=== PATIENT | male | born 1960 | race Caucasian/White ===

== ENCOUNTER 2022-07-23 13:57 | Inpatient (IN) | payer OTHER ==
[2022-07-23 14:37] VITALS: BMI 22.4
[2022-07-23] MEDS ORDERED: MAG HYDROX/AL HYDROX/SIMETH 30 ML UNIT-DOSE CUP PO PRN (15:48)
[2022-07-23] MEDS ORDERED: hydrOXYzine PAMOATE 25 MG CAPSULE (FP) PO PRN (15:48)
[2022-07-23] MEDS ORDERED: BISMUTH SUBSALICYLATE 524 MG/30 ML PO PRN (15:48)
[2022-07-23] MEDS ORDERED: IBUPROFEN 600 MG TABLET (FP) PO PRN (15:48)
[2022-07-23] MEDS ORDERED: IBUPROFEN 400 MG TABLET (FP) PO PRN (15:48)
[2022-07-23] MEDS ORDERED: DICYCLOMINE HCL 10 MG CAPSULE PO PRN (15:48)
[2022-07-23] MEDS ORDERED: P-EPHED 60MG/TRIPROLIDI 2.5MG TABLET PO PRN (15:48)
[2022-07-23] MEDS ORDERED: LOPERAMIDE HCL 2 MG CAPSULE PO PRN (15:48)
[2022-07-23] MEDS ORDERED: guaiFENesin 200 MG/10 ML 10 ML UNIT-DOSE CUPS PO PRN (15:48)
[2022-07-23] MEDS ORDERED: NALOXONE HCL (KLOXXADO) 8 MG SPRAY NS PRN (15:48)
[2022-07-23] MEDS ORDERED: NALOXONE HCL 0.4 MG/ML VIAL IM PRN (15:48)
[2022-07-23] MEDS ORDERED: ACETAMINOPHEN 325 MG TABLET (FP) PO PRN (15:48)
[2022-07-23] MEDS ORDERED: BENZOCAINE/MENTHOL (CHLORASEPTIC ) LOZENGE MM PRN (15:48)
[2022-07-23] MEDS ORDERED: POLYETHYLENE GLYCOL (HEALTHYLAX) 3350 17 GM PACKET PO PRN (15:48)
[2022-07-23] MEDS ORDERED: MAGNESIUM HYDROX 2400MG/30ML ORAL SUSPENSION 30 ML CUP PO PRN (15:48)
[2022-07-23] MEDS: MELATONIN 5 MG TABLETS PO PRN (22:25)
[2022-07-23] MEDS: THIAMINE HCL 100 MG TABLET (FP) PO SCH (22:25)
[2022-07-23] MEDS: METHOCARBAMOL 500 MG TABLET PO PRN (22:26)
[2022-07-24] MEDS: PRENATAL VITAMINS W/ FOLIC ACID TABLET (FP) PO SCH (10:12)
[2022-07-24] MEDS ORDERED: methaDONE HCL 10 MG TABLET (FOR DETOX USE ONLY) PO ONE (10:30)
[2022-07-24 11:07] LABS: HEMATOCRIT 36.8 % (35.4-49); HEMOGLOBIN 12.1 GM/dL (11.7-16.9); MCH 28.8 pg (25.7-33.7); MCHC 32.9 g/dl (32.0-35.9); MEAN CELL VOLUME 87.6 fl (80-96); MEAN PLT VOLUME 8.7 fl (7.5-11.1); PLATELET COUNT 180 10^3/uL (134-434); RBC 4.21 M/mm3 (4.00-5.60); RDW 15.2 % (11.9-15.9); WHITE BLOOD COUNT 7.2 K/mm3 (4.0-10.0)
[2022-07-24 11:57] LABS: CALCIUM 8.9 mg/dL (8.5-10.1)
[2022-07-24 11:58] LABS: ALBUMIN 3.2 g/dl (3.4-5.0)
[2022-07-24 12:01] LABS: BILIRUBIN,TOTAL 0.5 mg/dL (0.2-1); CREATININE 0.8 mg/dL (0.55-1.3)
[2022-07-24 12:02] LABS: TOT PROT 7.2 g/dl (6.4-8.2)
[2022-07-24] MEDS: ONDANSETRON *ODT* 4 MG TABLET SL PRN (18:21)
[2022-07-24] MEDS: diazePAM 5 MG TABLET PO PRN (22:24)
[2022-07-24] MEDS: MELATONIN 5 MG TABLETS PO PRN (22:25)
[2022-07-24] MEDS: THIAMINE HCL 100 MG TABLET (FP) PO SCH (22:25)
[2022-07-24] MEDS: METHOCARBAMOL 500 MG TABLET PO PRN (22:27)
[2022-07-25] MEDS: ONDANSETRON *ODT* 4 MG TABLET SL PRN (07:09)
[2022-07-25] MEDS: ACETAMINOPHEN 325 MG TABLET (FP) PO PRN ×2 (07:10→22:14)
[2022-07-25] MEDS: PRENATAL VITAMINS W/ FOLIC ACID TABLET (FP) PO SCH (10:38)
[2022-07-25] MEDS: diazePAM 5 MG TABLET PO PRN ×2 (14:34→22:13)
[2022-07-25] MEDS: cloNIDine HCL 0.1 MG TABLET PO PRN (22:12)
[2022-07-25] MEDS: MELATONIN 5 MG TABLETS PO PRN (22:12)
[2022-07-25] MEDS: THIAMINE HCL 100 MG TABLET (FP) PO SCH (22:12)
[2022-07-25] MEDS: METHOCARBAMOL 500 MG TABLET PO PRN (22:12)
[2022-07-26] MEDS ORDERED: methaDONE HCL 10 MG TABLET (FOR DETOX USE ONLY) PO ONE (10:00)
[2022-07-26] MEDS: PRENATAL VITAMINS W/ FOLIC ACID TABLET (FP) PO SCH (10:42)
[2022-07-26] MEDS: diazePAM 5 MG TABLET PO PRN (10:42)
[2022-07-26] MEDS: cloNIDine HCL 0.1 MG TABLET PO PRN (13:52)
[2022-07-26] MEDS: THIAMINE HCL 100 MG TABLET (FP) PO SCH (22:24)
[2022-07-27] MEDS: PRENATAL VITAMINS W/ FOLIC ACID TABLET (FP) PO SCH ×2 (10:25→11:05)
[2022-07-27] MEDS: THIAMINE HCL 100 MG TABLET (FP) PO SCH (21:04)
[2022-07-27] MEDS: ACETAMINOPHEN 325 MG TABLET (FP) PO PRN (21:04)
[2022-07-28 09:33] VITALS: BP 131/66; PULSE 74; RESP 18; TEMP 97.7
[2022-07-28] MEDS: PRENATAL VITAMINS W/ FOLIC ACID TABLET (FP) PO SCH (09:46)
[2022-07-28] MEDS ORDERED: methaDONE HCL 10 MG TABLET (FOR DETOX USE ONLY) PO ONE (10:00)
== END 2022-07-28 10:30 | disposition home or self-care (01) | DRG 773 ==
LOC: YASAS 13:57 → Y3N 15:49
PROVIDERS: ADMIT Allergy & Immunology; ATTEND Surgery
PROC: HZ2ZZZZ Detoxification Services for Substance Abuse Treatment (ICD-10-PCS; principal; 2022-07-23)
DX: F11.23 Opioid dependence with withdrawal (principal); F17.210 Nicotine dependence, cigarettes, uncomplicated
CPT/HCPCS: 36415; 80053; 85027; 86780; 87811; C9803-CS; Q0162; U0003; U0005